=== PATIENT | male | born 1990 | race Asian ===

== ENCOUNTER 2022-01-29 15:57 | Emergency (ER) | payer BC ==
[~2022-01-29] VITALS: Ht 172.7 cm; Wt 104.5 kg
[2022-01-29 16:00] VITALS: TEMP 97.6
[2022-01-29 16:31] LABS: PLATELET COUNT 254 K/uL (142-355)
[2022-01-29 16:49] LABS: POTASSIUM 3.8 mmol/L (3.6-5.2)
[2022-01-29 17:15] VITALS: BP 165/79
== END 2022-01-29 17:15 | disposition home or self-care (01) ==
LOC: ED 15:57
PROVIDERS: Emergency Medicine
DX: Z87.898 Personal history of other specified conditions (principal); I10 Essential (primary) hypertension
CPT/HCPCS: 36415; 80048; 84484; 85027; 93005; 99283